=== PATIENT | male | born 1965 | race African-American/Black ===

== ENCOUNTER 2019-08-31 18:37 | Emergency (ER) | payer BC ==
--- NOTE | 2019-08-31 21:15 | ER Document Report ---
ED Medical Screen (RME) - General Chief Complaint: Rectal Bleeding Stated Complaint: RECTAL BLEEDING Time Seen by Provider: 08/31/19 20:05 Primary Care Provider: CALI CERVANTES MD [Primary Care Provider] - Follow up as needed Information source: Patient Notes: Patient presents complaining of bleeding to the rectal area for the past several days. Patient denies any pain although states that the area does feel raw. Patient states that he has had occasional dizziness with standing. Patient denies any abdominal tenderness. Patient denies any fever. Patient does report a history of hemorrhoids. I have greeted and performed a rapid initial assessment of this patient. A comprehensive ED assessment and evaluation of the patient, analysis of test results and completion of the medical decision making process will be conducted by additional ED providers. TRAVEL OUTSIDE OF THE [place] IN LAST 30 DAYS: No - Related Data Allergies/Adverse Reactions: No Known Allergies Allergy (Unverified 08/31/19 20:03) Home Medications: Verapimil 40mg. Colace Past Medical History - Past Medical History Cardiac Medical History: Reports: Hx Hypertension Past Surgical History: Reports: Hx Tonsillectomy Physical Exam - Vital signs Vitals: Temp Pulse Resp BP Pulse Ox 98.1 F 98 16 149/77 H 99 08/31/19 19:43 08/31/19 19:43 08/31/19 19:43 08/31/19 19:43 08/31/19 19:43 - General General appearance: Appears well, Alert Notes: Patient with external hemorrhoid Course - Vital Signs Vital signs: Temp Pulse Resp BP Pulse Ox 98.1 F 98 16 149/77 H 99 08/31/19 19:43 08/31/19 19:43 08/31/19 19:43 08/31/19 19:43 08/31/19 19:43 Doctor's Discharge - Discharge Referrals: CALI CERVANTES MD [Primary Care Provider] - Follow up as needed
--- NOTE | 2019-08-31 22:02 | ER Document Report ---
ED General - General Chief Complaint: Rectal Bleeding Stated Complaint: RECTAL BLEEDING Time Seen by Provider: 08/31/19 20:05 Primary Care Provider: CALI CERVANTES MD [Primary Care Provider] - Follow up as needed TRAVEL OUTSIDE OF THE [place] IN LAST 30 DAYS: No - HPI Patient complains to provider of: rectal bleeding Onset/Duration: Gradual Severity: Mild Context: 54 year old male arrives with rectal bleeding. No fever and no abd pain. He relates a h/o hemorrhoids and a colonscopy that was normal reportedly at age 48. Sees Casi Cervantes. Also states he was constipated in the last few weeks. No chest pain or sob. Exacerbated by: Denies Relieved by: Denies - Related Data Allergies/Adverse Reactions: No Known Allergies Allergy (Unverified 08/31/19 20:03) Home Medications: Verapimil 40mg. Colace Past Medical History - General Information source: Patient - Social History Smoking Status: Never Smoker Family History: Reviewed & Not Pertinent Patient has suicidal ideation: No Patient has homicidal ideation: No - Past Medical History Cardiac Medical History: Reports: Hx Hypertension Past Surgical History: Reports: Hx Tonsillectomy Review of Systems - Review of Systems Constitutional: No symptoms reported EENT: No symptoms reported Cardiovascular: No symptoms reported Respiratory: No symptoms reported Gastrointestinal: See HPI Genitourinary: No symptoms reported Male Genitourinary: No symptoms reported Musculoskeletal: No symptoms reported Skin: No symptoms reported Hematologic/Lymphatic: No symptoms reported Neurological/Psychological: No symptoms reported Physical Exam - Vital signs Vitals: Temp Pulse Resp BP Pulse Ox 98.1 F 98 16 149/77 H 99 08/31/19 19:43 08/31/19 19:43 08/31/19 19:43 08/31/19 19:43 08/31/19 19:43 Interpretation: Normal - General General appearance: Appears well, Alert - HEENT Head: Normocephalic, Atraumatic Eyes: Normal Pupils: PERRL - Respiratory Respiratory status: No respiratory distress Chest status: Nontender Breath sounds: Normal Chest palpation: Normal - Cardiovascular Rhythm: Regular Heart sounds: Normal auscultation Murmur: No - Abdominal Inspection: Normal Distension: No distension Bowel sounds: Normal Tenderness: Nontender Organomegaly: No organomegaly - Rectal Hemorrhoids: External, Other - 5 o'clock external hem. nonthrombosed. No active bleeding. - Back Back: Normal, Nontender - Extremities General upper extremity: Normal inspection, Nontender, Normal color, Normal ROM, Normal temperature General lower extremity: Normal inspection, Nontender, Normal color, Normal ROM, Normal temperature, Normal weight bearing. No: Mey's sign - Neurological Neuro grossly intact: Yes Cognition: Normal Orientation: AAOx4 Parker Coma Scale Eye Opening: Spontaneous Lala Coma Scale Verbal: Oriented Lala Coma Scale Motor: Obeys Commands Lala Coma Scale Total: 15 Speech: Normal Motor strength normal: LUE, RUE, LLE, RLE Sensory: Normal - Psychological Associated symptoms: Normal affect, Normal mood - Skin Skin Temperature: Warm Skin Moisture: Dry Skin Color: Normal Course - Re-evaluation Re-evalutation: 08/31/19 22:01 MDM Discussed that he needs follow up with pcp and may need repeat colonscopy. He expressed understanidng. - Vital Signs Vital signs: Temp Pulse Resp BP Pulse Ox 98.4 F 88 16 164/82 H 100 08/31/19 21:26 08/31/19 21:26 08/31/19 21:26 08/31/19 21:26 08/31/19 21:26 - Laboratory Result Diagrams: 08/31/19 22:32 08/31/19 22:32 Laboratory results interpreted by me: 08/31/19 08/31/19 22:32 22:32 WBC 3.6 L RBC 4.30 L Carbon Dioxide 31 H Discharge - Discharge Clinical Impression: External bleeding hemorrhoids, Elevated blood pressure reading Condition: Good Disposition: HOME, SELF-CARE Instructions: HC Hemorrhoid Cream ([facility]), Hemorrhoids ([facility]) Additional Instructions: Use 1 % Hydrocortisone ointment that you may purchase over the counter at the store. Please return here for any problems or concerns including but not limited to chest pain, dizziness, or abdominal pain. Forms: Elevated Blood Pressure Referrals: CALI CERVANTES MD [Primary Care Provider] - Follow up as needed
[2019-08-31 22:53] LABS: ABSOLUTE EOSINOPHILS # (AUTO) 0.1 10^3/uL (0.0-0.6); ABSOLUTE LYMPHOCYTES (AUTO) 1.3 10^3/uL (0.5-4.7); ABSOLUTE MONOCYTES (AUTO) 0.4 10^3/uL (0.1-1.4); ABSOLUTE NEUT (AUTO) 1.8 10^3/uL (1.7-8.2); BASOPHILS % (AUTO) 0.7 % (0-2); EOSINOPHILS % (AUTO) 2.5 % (0-6); HEMATOCRIT 40.2 % (37.9-51.0); HEMOGLOBIN 13.6 g/dL (13.5-17.0); LYMPHOCYTES % (AUTO) 35.9 % (13-45); MEAN CORPUSCULAR HEMOGLOBIN 31.6 pg (27.0-33.4); MEAN CORPUSCULAR HGB CONC 33.7 g/dL (32.0-36.0); MEAN CORPUSCULAR VOLUME 94 fl (80-97); MONOCYTES % (AUTO) 10.3 % (3-13); PLATELET COUNT 221 10^3/uL (150-450); RED CELL DISTRIBUTION WIDTH 13.4 % (11.5-14.0); SEGMENTED NEUTROPHILS % (AUTO) 50.6 % (42-78); TOTAL CELLS COUNTED % (AUTO) 100 %; WHITE BLOOD COUNT 3.6 10^3/uL (4.0-10.5)
[2019-08-31 23:03] LABS: ALBUMIN 4.1 g/dL (3.5-5.0); ALKALINE PHOSPHATASE 100 U/L (38-126); ANION GAP 6 (5-19); ASPARTATE AMINO TRANSFERASE 25 U/L (17-59); BILIRUBIN,DIRECT 0.2 mg/dL (0.0-0.4); BILIRUBIN,TOTAL 0.5 mg/dL (0.2-1.3); BLOOD UREA NITROGEN 10 mg/dL (7-20); C-REACTIVE PROTEIN < 5.0 mg/L (<10.0); CALCIUM 9.2 mg/dL (8.4-10.2); CARBON DIOXIDE 31 mmol/L (22-30); CHLORIDE 101 mmol/L (98-107); GLUCOSE 103 mg/dL (75-110); POTASSIUM 3.9 mmol/L (3.6-5.0)
[2019-08-31 23:45] VITALS: BP 143/75
== END 2019-08-31 23:45 | disposition home or self-care (01) ==
LOC: ER 18:37
DX: K64.4 Residual hemorrhoidal skin tags (principal); K59.00 Constipation, unspecified; I10 Essential (primary) hypertension; Z79.899 Other long term (current) drug therapy
CPT/HCPCS: 36415; 80053; 85025; 86140; 99283

== ENCOUNTER 2019-09-23 09:43 | Day surgery (SDC) | payer BC ==
[2019-09-16 10:18] LABS: ABSOLUTE EOSINOPHILS # (AUTO) 0.1 10^3/uL (0.0-0.6); ABSOLUTE NEUT (AUTO) 1.3 10^3/uL (1.7-8.2); MEAN CORPUSCULAR VOLUME 93 fl (80-97); PLATELET COUNT 237 10^3/uL (150-450); TOTAL CELLS COUNTED % (AUTO) 100 %
[2019-09-16 10:35] LABS: ANION GAP 9 (5-19); BLOOD UREA NITROGEN 13 mg/dL (7-20); CALCIUM 9.6 mg/dL (8.4-10.2); CARBON DIOXIDE 31 mmol/L (22-30); CHLORIDE 101 mmol/L (98-107); GLUCOSE 98 mg/dL (75-110); POTASSIUM 4.7 mmol/L (3.6-5.0)
[2019-09-16 11:07] LABS: ABSOLUTE LYMPHOCYTES (AUTO) 1.4 10^3/uL (0.5-4.7); ABSOLUTE MONOCYTES (AUTO) 0.4 10^3/uL (0.1-1.4); BASOPHILS % (AUTO) 1.3 % (0-2); EOSINOPHILS % (AUTO) 2.7 % (0-6); HEMOGLOBIN 14.3 g/dL (13.5-17.0); LYMPHOCYTES % (AUTO) 44.1 % (13-45); MEAN CORPUSCULAR HEMOGLOBIN 31.7 pg (27.0-33.4); MONOCYTES % (AUTO) 11.5 % (3-13); RED CELL DISTRIBUTION WIDTH 13.6 % (11.5-14.0); SEGMENTED NEUTROPHILS % (AUTO) 40.4 % (42-78); WHITE BLOOD COUNT 3.1 10^3/uL (4.0-10.5)
--- NOTE | 2019-09-16 13:22 | EKG REPORT ---
SEVERITY:- NORMAL ECG - SINUS RHYTHM : Confirmed by: Miki Jefferson MD 16-Sep-2019 13:21:36
[~2019-09-23 09:43] MED LIST: LACTATED RINGERS 1000 ML IV PRN; LIDOCAINE 0.5% INJ-PF (5 MG/ML) 50 ML SDV SUBCUT PRN
[2019-09-23] MEDS ORDERED: KETOROLAC TROMETHAMINE 60 MG/2 ML SDV ONE (10:34)
[2019-09-23] MEDS ORDERED: LIDOCAINE 2% INJ-PF (20 MG/ML) 2 ML AMPUL ONE (10:34)
[2019-09-23] MEDS ORDERED: LIDOCAINE 1%/EPINEPHRINE INJ 20 ML VIAL ONE (12:20)
[2019-09-23] MEDS ORDERED: ONDANSETRON HCL INJ/PF 4 MG/2 ML SDV ONE (12:21)
[2019-09-23] MEDS ORDERED: PROPOFOL INJ 200 MG/20 ML VIAL IV ONE (12:21)
[2019-09-23] MEDS ORDERED: FENTANYL CITRATE INJ/PF 100 MCG/2 ML AMPUL ONE (12:21)
[2019-09-23] MEDS ORDERED: MIDAZOLAM 2 MG/2 ML INJ ONE (12:21)
[2019-09-23] MEDS ORDERED: MEPERIDINE HCL/PF INJ 25 MG/1 ML DISP.SYRIN IV PRN (13:03)
[2019-09-23] MEDS ORDERED: DIPHENHYDRAMINE HCL 50 MG/ML VIAL IV PRN (13:03)
[2019-09-23] MEDS ORDERED: OXYCODONE-ACETAMINOPHEN 5-325 MG TABLET PO PRN ×2 (13:03)
[2019-09-23] MEDS ORDERED: PROMETHAZINE HCL INJ 25 MG/1 ML VIAL IV PRN ×2 (13:03)
[2019-09-23] MEDS ORDERED: FENTANYL CITRATE INJ/PF 100 MCG/2 ML AMPUL IV PRN ×3 (13:03)
[2019-09-23] MEDS ORDERED: MORPHINE SULFATE 10 MG/ML INJ IV PRN (13:03)
[2019-09-23] MEDS ORDERED: ONDANSETRON HCL INJ/PF 4 MG/2 ML SDV IV PRN (13:03)
--- NOTE | 2019-09-23 13:12 | Operative Report ---
Nonrecallable Operative Report DATE OF SURGERY: 09/23/19 PREOPERATIVE DIAGNOSIS: Hemorrhoids POSTOPERATIVE DIAGNOSIS: Hemorrhoids OPERATION: Hemorrhoidal banding and hemorrhoidectomy SURGEON: BENEDICTO FRANKLIN ANESTHESIA: GA TISSUE REMOVED OR ALTERED: Hemorrhoid COMPLICATIONS: None ESTIMATED BLOOD LOSS: 10 cc INTRAOPERATIVE FINDINGS: See note PROCEDURE: Patient was brought the operating awake alert stable condition placed in the operating table supine position induced under general anesthesia and intubated. He was then placed in a high lithotomy position. After appropriate timeout site verification the procedure commenced. Patient had a large external hemorrhoid at the 7 o'clock position that was appeared to be thrombosed and ulcerated. The anoscope was placed into the rectum and examination then ensued. All 4 quadrants were examined the patient had grade 3 hemorrhoids at the 7 o 'clock position the 11 o'clock position the 5 o'clock position. Using the hemorrhoidal manufacturing mechanic these 3 nate of hemorrhoids were serially rubber band ligated. The external hemorrhoid on the anal verge was then grasped with an Allis clamp and placed on traction and elliptical incision was made around it with the Bovie cautery and it was removed the dissection continued down to the subcutaneous and submucosal tissueThe hemorrhoid was then excised and sent to pathology. The mucosa/skin margin was then reapproximated with a running 2-0 chromic suture. Sterile dressing was applied which completed the procedure. Estimated blood loss was 10 cc sponge needle counts were correct x2. The patient was then transported back to recovery in stable condition
[2019-09-23] MEDS ORDERED: HYDROCODONE/ACETAMINOPHEN 10-325 MG TABLET PO PRN (13:18)
--- NOTE | 2019-09-23 13:18 | Discharge Summary ---
Discharge Summary (SDC) - Discharge Final Diagnosis: Hemorrhoids Date of Surgery: 09/23/19 Discharge Date: 09/23/19 Condition: Good Forms: ASU Anesthesia D/C Instruction, Discharge POC-Surgical Service Treatment or Instructions: Patient should do sits baths with Epsom salts for 30 minutes 3 times a day Prescriptions: Hydrocodone/Acetaminophen [Dent 10-325 mg Tablet] 1 tab PO Q6 PRN #20 tablet PRN Reason: Referrals: BENEDICTO FRANKLIN MD [ACTIVE STAFF] - 10/02/19 9:45 am Discharge Diet: As Tolerated Discharge Activity: Activity As Tolerated, No Lifting Over 10 Pounds Report the Following to Your Physician Immediately: Fever over 101 Degrees - Follow-up with me in surgical clinic in 10 to 14 days, Redness
[2019-09-23] MEDS ORDERED: HYDROCODONE/ACETAMINOPHEN 10-325 MG TABLET ONE (13:39)
[2019-09-23 14:57] VITALS: BP 156/92
== END 2019-09-23 14:45 | disposition home or self-care (01) ==
LOC: OROUT 09:43
PROVIDERS: ATTEND Surgery
DX: K64.8 Other hemorrhoids (principal); K64.5 Perianal venous thrombosis; I10 Essential (primary) hypertension; G47.30 Sleep apnea, unspecified
CPT/HCPCS: 93005; 36415; 85025; 80048; 88304 ×2; 93010; 00902; 46221; 46999; J2250; J1885; J3010; J2405; J2704; J3490; 902